=== PATIENT | female | born 1980 | race African-American/Black ===

== ENCOUNTER → 2022-01-10 | Emergency (ER) | payer MEDICAID, OTHER ==
[~2022-01-10] VITALS: Ht 182.9 cm; Wt 64.9 kg
[2022-01-10 20:21] VITALS: BP 138/80
== END | disposition left against medical advice (07) ==
LOC: ER 20:21
DX: M54.50 Low back pain, unspecified (principal); Z53.21 Procedure and treatment not carried out due to patient leaving prior to being seen by health care provider